=== PATIENT | female | born 1990 | race Hispanic/Latino ===

== ENCOUNTER 2017-09-20 08:28 | Inpatient (IN) | payer BC ==
[~2017-09-20] VITALS: Ht 154.9 cm; Wt 49.9 kg
[2017-09-20 12:51] LABS: APPEARANCE,URINE Clear (CLEAR); BILIRUBIN,URINE Negative (NEGATIVE); COLOR,URINE Yellow (YELLOW); GLUCOSE, URINE (UA) Negative (NEGATIVE); KETONES,URINE Negative (NEGATIVE); LEUKOCYTE ESTERASE ,URINE Small (NEGATIVE); NITRATE,URINE Negative (NEGATIVE); OCCULT BLOOD,URINE Negative (NEGATIVE); PH,URINE 5.5 (5.0-8.0); PROTEIN,URINE Negative (NEGATIVE); UROBILINOGEN,URINE 0.2 mg/dL (0.2-1.0)
[2017-09-20 12:59] LABS: BACTERIA,URINE Rare /HPF (None Seen); SQUAMOUS EPITHELIAL CELL,UR Rare /LPF (0-2); WBC,URINE 0-1 /HPF (0-1)
[2017-09-20] MEDS ORDERED: ONDANSETRON HCL MDV 20ML 2 MG/ML VIAL IVP ONE (13:47)
[2017-09-20] MEDS ORDERED: MORPHINE SULFATE 4 MG/1ML SYG ONE (13:48)
[2017-09-20 13:56] LABS: BASOPHILS % (AUTO) 0.4 % (0.0-5.0); EOSINOPHILS % (AUTO) 1.9 % (0.0-8.0); HEMATOCRIT 37.3 % (36-48); LYMPHOCYTES % (AUTO) 37.1 % (21.0-51.0); MEAN CORPUSCULAR HEMOGLOBIN 30.4 pg (27.0-33.0); MEAN CORPUSCULAR HGB CONC 34.4 g/dL (32.0-36.0); MEAN CORPUSCULAR VOLUME 88.3 fL (79-99); MONOCYTES % (AUTO) 6.9 % (3.0-13.0); NEUTROPHILS % (AUTO) 53.7 % (40.0-77.0); NUCLEATED RED BLOOD CELLS 0.1 % (0.0-0.19); PLATELET COUNT (AUTO) 287 K/uL (130-400); RED BLOOD CELL COUNT(AUTO) 4.22 MIL/uL (4.00-5.50); WHITE BLOOD COUNT (AUTO) 6.4 K/uL (4.8-10.8)
[2017-09-20 14:05] LABS: CREATININE 0.8 mg/dL (0.5-1.5); POTASSIUM 3.8 mmol/L (3.5-5.1)
[2017-09-20 14:10] LABS: BILIRUBIN,TOTAL 0.4 mg/dL (0.2-1.0); TOTAL PROTEIN, SERUM 7.9 g/dL (6.0-8.3)
[2017-09-20] MEDS ORDERED: HYDRALAZINE HCL 20 MG/ML VIAL IV PRN (16:45)
[2017-09-20] MEDS ORDERED: MORPHINE SULFATE 2 MG/ML 1ML SYG IV PRN (16:45)
[2017-09-20] MEDS ORDERED: ACETAMINOPHEN 325 MG TAB PO PRN (16:45)
[2017-09-20 17:02] VITALS: BP 106/80
[2017-09-20] MEDS: ONDANSETRON HCL MDV 20ML 2 MG/ML VIAL IV PRN (17:26)
[2017-09-20] MEDS ORDERED: FAMOTIDINE 20MG TAB 20 MG TAB ONE (19:25)
[2017-09-20] MEDS ORDERED: 1/2 NORMAL SALINE 1,000 ML IV ONE (19:26)
[2017-09-20] MEDS: FAMOTIDINE 20MG TAB 20 MG TAB PO SCH (19:30)
[2017-09-20 19:37] VITALS: BP 107/73
[2017-09-20] MEDS: HYDROCODONE/ACETAMINOPHEN 5/325 MG TAB PO PRN (21:52)
[2017-09-20 23:37] VITALS: BP 103/60
[2017-09-21] MEDS ORDERED: SODIUM CHLORIDE 0.9% 1000ML 1,000 ML IV SCH
[2017-09-21] MEDS: HYDROCODONE/ACETAMINOPHEN 5/325 MG TAB PO PRN ×2 (03:24→20:52)
[2017-09-21 04:23] VITALS: BP 107/70
[2017-09-21 07:30] VITALS: BP 100/65
[2017-09-21] MEDS: FAMOTIDINE 20MG TAB 20 MG TAB PO SCH ×2 (08:37→19:21)
[2017-09-21] MEDS: ENOXAPARIN SODIUM 40 MG/0.4 ML SYRINGE SQ SCH (08:38)
[2017-09-21] MEDS: ACETAMINOPHEN-CODEINE 300/30MG TAB PO PRN ×2 (10:53→16:34)
[2017-09-21] MEDS: ONDANSETRON HCL MDV 20ML 2 MG/ML VIAL IV PRN (10:53)
[2017-09-21 11:00] VITALS: BP 110/68
[2017-09-21 16:00] VITALS: BP 110/74
[2017-09-21 19:43] VITALS: BP 119/73
[2017-09-21 23:43] VITALS: BP 103/53
[2017-09-22] MEDS: ACETAMINOPHEN-CODEINE 300/30MG TAB PO PRN ×2 (01:31→10:24)
[2017-09-22 04:44] VITALS: BP 102/74
[2017-09-22 05:22] LABS: HEMATOCRIT 31.2 % (36-48); MEAN CORPUSCULAR HEMOGLOBIN 31.1 pg (27.0-33.0); MEAN CORPUSCULAR HGB CONC 35.4 g/dL (32.0-36.0); MEAN CORPUSCULAR VOLUME 87.9 fL (79-99); PLATELET COUNT (AUTO) 219 K/uL (130-400); RED BLOOD CELL COUNT(AUTO) 3.55 MIL/uL (4.00-5.50); WHITE BLOOD COUNT (AUTO) 7.7 K/uL (4.8-10.8)
[2017-09-22 05:36] LABS: CREATININE 0.7 mg/dL (0.5-1.5); POTASSIUM 3.7 mmol/L (3.5-5.1)
[2017-09-22 07:51] VITALS: BP 104/65
[2017-09-22] MEDS: FAMOTIDINE 20MG TAB 20 MG TAB PO SCH (08:23)
[2017-09-22] MEDS: ENOXAPARIN SODIUM 40 MG/0.4 ML SYRINGE SQ SCH (08:31)
[2017-09-22 11:59] VITALS: BP 105/70
== END 2017-09-22 14:35 | disposition home or self-care (01) | DRG 563 ==
LOC: EDH 08:28 → EDHIP 15:30 → 4AH 16:51
PROVIDERS: ADMIT Orthopaedic Surgery; ATTEND Orthopaedic Surgery
DX: S82.001A Unspecified fracture of right patella, initial encounter for closed fracture (principal); K59.00 Constipation, unspecified; S92.14 Dome fracture of talus; S92.213A Displaced fracture of cuboid bone of unspecified foot, initial encounter for closed fracture; S92.001A Unspecified fracture of right calcaneus, initial encounter for closed fracture; M19.90 Unspecified osteoarthritis, unspecified site; V49.88XA Car occupant (driver) (passenger) injured in other specified transport accidents, initial encounter; Y93.89 Activity, other specified; Y92.488 Other paved roadways as the place of occurrence of the external cause; Y99.8 Other external cause status
CPT/HCPCS: 36415; 73521; 73562; 73610; 73630; 73700; 80048; 80053; 81001; 83735; 84703; 85025; 85027; 97039; J1650; J2270